=== PATIENT | female | born 1965 | race African-American/Black ===

== ENCOUNTER 2023-03-15 08:41 | Emergency (ER) | payer OTHER ==
[2023-03-15 08:46] VITALS: BP 140/87; PULSE 77; RESP 18; TEMP 98; BMI 30.6
== END 2023-03-15 10:14 | disposition home or self-care (01) ==
LOC: JERFT 08:41 → JER 08:41 → JERFT 10:14
DX: M79.641 Pain in right hand (principal); M25.551 Pain in right hip; W18.30XA Fall on same level, unspecified, initial encounter; Y99.0 Civilian activity done for income or pay
CPT/HCPCS: 73130-TC-RT-FY; 73502-TC-RT-FY; 99283-25